=== PATIENT | male | born 1955 | race Caucasian/White ===

== ENCOUNTER 2024-12-09 01:11 | Inpatient (IN) | payer BC ==
[~2024-12-09] VITALS: Ht 185.4 cm; Wt 111.0 kg
[2024-12-09] VITALS (9 sets, daily range): BP systolic 105–131; BP diastolic 56–81; PULSE 64–140; RESP 9–17; TEMP 96.7–98.2; O2SAT 94–98
--- NOTE | 2024-12-09 01:15 | ELECTROCARDIOGRAPH REPORT ---
[facility] Test Date: 2024-12-09 Test Time: 01:12:49 Pat Name: CARMELITA BOSS Department: [facility] Patient ID: [id number] Room: [place] [address] Gender: M [employer] Maintenance Mechanic: : [id number] Requested By: CY MOON Order Number: [id number] Reading MD: Dr. Paul Maldonado Measurements Intervals Rowdy Rate: 111 P: 251 RI: 175 QRS: -26 QRSD: 112 T: 252 QT: 349 QTc: 474 Interpretive Statements Sinus tachycardia with irregular rate Probable anterior infarct, age indeterminate Electronically Signed On 12-12-2024 7:42:[address] Paul Maldonado Please click the below link to view image of tracing.
--- NOTE | 2024-12-09 01:29 | Physician Documentation ---
History of Present Illness ~ Chief Complaint: Irregular Heartbeat Stated Complaint: SEE CHIEF COMPLAINT [facility] Time Seen by MD: 01:15 HPI 69 year old male sent as transfer from [facility] today with a recent diagnosis of CHF, EF of 15-20% by echocardiogram. His initial presenting symptoms were fatigue and orthopnea. Initially was to be admitted to [facility] but left AMA earlier today and returned. Has variously been noted to be in afib/rvr, sinus bradycardia, and finally a type 2 heart block for which he was transferred here for possible need for a pacemaker. He was diuresed at [facility] and reports improved symptoms since that time. Denies chest pain, N/V/D. Medication Reconciliation Allergies: Coded Allergies: ibuprofen (Verified Allergy, Unknown, 12/09/24) lip swelling Review of Systems All Other Systems at this time: Reviewed and Negative Physical Exam Vital Signs: RN Vital Signs have been reviewed: Yes, Temperature: 98.2, Heart Rate: 132, Respiratory Rate: 16, BP: 104/65, Pulse Oximetry: 94, Weight: 111.000 Oxygen Flow Rate: 0 Physical Exam HEENT: PERRL, moist oral mucosa, EOMI Pulmonary: No respiratory distress CTAB Cardiac: irregularly irregular, no murmur, rub or gallop MSK: no deformity; +trace pitting edema BLE Skin: w/d/i, no rash Neuro: alert, nonfocal Psych: normal affect Progress Results/Orders Results/Orders Orders - CY MOON MD Page Hospitalist (12/09/24 01:21) Completed Orders - CY MOON MD Electrocardiogram (12/09/24 01:12) Vital Signs 12/09/24 12/09/24 01:13 01:25 Temp 98.2 Pulse 132 96 Resp 16 17 B/P (MAP) 104/65 116/51 (72) Pulse Ox 94 95 O2 Flow Rate 0 0 EKG/XRAY/CT/US/VASC/MRI EKG : Indication: weakness EKG Rate: 111 EKG Blocks: second degree mobitz I Additional Comment my interpretation: second degree mobitz type 1 (derickebach) at rate of 111/min, no STEMI criteria Medical Decision Making Additional information obtaine: N/A Findings 69 year old male with new diagnosis of pulmonary edema 2/2 CHF and poor ejection fraction, now with intermittent heart block and possible need for pacemaker placement. Stable on arrival from [facility] and will transfer care to hospitalist for tele floor. Differential Dx:Considerations: Include: other Differential Dx:Considerations: Include other Departure Disposition: 01 HOME / SELF CARE / HOMELESS Impression: Primary Impression: CHF (congestive heart failure) Additional Impression: Mobitz type I Wenckebach atrioventricular block Condition: Stable Referrals: NO PRIMARY CARE PROVIDER (PCP) Education Educated: Patient Educated regarding: diagnosis, treatment, prognosis, need for follow up Signature Scribe Signature: . Attestation: . CY MOON MD Dec 09, 2024 01:29
[2024-12-09] MEDS ORDERED: NO HOME MEDS (02:16)
[2024-12-09] MEDS ORDERED: magnesium hydroxide 30ml (MOM) UD suspension PO PRN (02:30)
[2024-12-09] MEDS ORDERED: potassium Cl 40MEQ/1/2NS 520ml 520 ML IV PRN (02:30)
[2024-12-09] MEDS ORDERED: magnesium sulf-water 2g/50mL 50 ML IV PRN (02:30)
[2024-12-09] MEDS ORDERED: ondansetron/PF 4mg/2ml inj IV PRN (02:30)
[2024-12-09] MEDS ORDERED: potassium Cl 20 mEq SR tablet PO PRN ×2 (02:30)
[2024-12-09] MEDS ORDERED: magnesium sulf-water 4G/100mL 100 ML IV PRN (02:30)
[2024-12-09] MEDS ORDERED: magnesium Cl slow-release 64mg tablet PO PRN (02:30)
[2024-12-09] MEDS ORDERED: mag hydrox/Alum hydrox/simeth 30ml oral suspension PO PRN (02:30)
[2024-12-09] MEDS ORDERED: HYDROcodone/acetaminophen 5mg/325mg tablet PO PRN (02:30)
--- NOTE | 2024-12-09 02:32 | HISTORY AND PHYSICAL-Residence ---
History & Physical Providers to CC Resident Creating Document: LUCILA VERNON, RES CC: VANITA BAEZ MD ~ History of Present Illness Reason for Admit\Complaint: CHF,Afib,tachy-belia arrhythmias History of Present Illness A 69-year-old male patient, past history of hypertension presented to the ED as a transfer from [place]. Patient has been having shortness of breath fatigue for the last two weeks associated with bilateral pitting pedal edema and paroxysmal nocturnal dyspnea. Patient presented to the ED in [place] with these symptoms and was noted that his EF was 15-20%. In addition patient was also diagnosed atrial fibrillation with RVR, dilated cardiomyopathy, systolic congestive heart failure and second-degree type one and type 2 heart block Patient lives with his in his house Patient's primary care doctor is Dr. Plaza Patient normally ambulates on his own Patient is an ex electrical maintenance engineer from [employer] Allergies: Coded Allergies: ibuprofen (Verified Allergy, Unknown, 12/09/24) lip swelling Home Medications Home Medications Active Reported No Home Medications (Home Med List) Each Past Medical History Past Medical History Hypertension Past Surgical History Surgical History Comment Hernia repair in 1979 Past Social History Social History Comment Patient lives with in his house Denies any alcohol or tobacco use Denies any drug use ROS All Other Systems: Reviewed and Negative ROS Constitutional: No fever, dizziness, no weakness, no decrease in appetite HEENT: Normal vision. No sore throat, epistaxis, tinnitus Cardiovascular: No chest pain/discomfort, palpitations, syncope. no pedal edema Respiratory: sob noted, no cough, no hemoptysis Gastrointestinal: No abdominal pain, nausea, vomiting. No diarrhea, melena. Genitourinary: No frquency, urgency, incontinence, nocturia. No dysuria, hematuria Musculoskeletal: Normal, no pains Endocrine:fatigue, no polydipsia, no polyuria. No heat or cold intolerance Neurologic: No headache, vertigo. No weakness, numbness or tingling of extrem ities Psychiatric: No hallucinations/delusions, no anhedonia, no suicidal ideation Hematologic: No bruises Exam Vitals: Vital Signs Date Time Temp Pulse Resp B/P (MAP) Pulse Ox O2 Delivery O2 Flow Rate FiO2 12/09/24 02:24 89 17 136/96 (109) 97 0 12/09/24 01:13 98.2 General: General: Awake, oriented to person, place and time HEENT: Conjunctive are pink, sclerae clear, no icterus, pupil is equal in both sides, reactive to light, no ear discharge, no pharyngeal erythema or an edema. Neck: Supple, no JVD, no lymphadenopathy and thyromegaly. Chest: Equal air entry on both lungs, no additional sounds no rhonchi no wheezing at the moment. Cardiovascular: S1-S2 heard, tachycardia, irregular rhythm noted, no gallops, no rubs, no murmurs Abdomen: Everted umbilicus, No visible peristalsis, Bowel sounds present on auscultation, soft, no tenderness, no guarding, no rigidity Extremities: No obvious deformities, no pitting edema bilaterally, capillary refill intact, peripheral pulsations are intact on both sides. Hairless and shiny lower extremities noted(as per patient it has always been this way) Neurologic: Mental status: alert and conscious, oriented to place, person and time, preserved memory, normal speech. Cranial nerves I-XII: Normal. Motor system: Preserved power, coordination, no evidenced involuntary movements, strength 5/5 in four extremities. Sensory system: Preserved temperature, pain and vibration sensation. 2+ deep tendon reflexes in biceps, triceps, quadriceps. Negative Babinski. Cerebellar: No nystagmus, dysdiadochokinesia, normal [id number] testing. Musculoskeletal: No joint swelling, deformities, inflammations, and no scoliosis and back tenderness Skin: Warm and dry. Dry oral mucosa. Advance Care Planning Advanced Care plannin - 30 Minutes (Spent 17 minutes discussing advanced care planning/resuscitative methods with the patient,he decided he wanted to be a full code) Additional Plan Atrial fibrillation with RVR Tachy-belia syndrome Second-degree type 1 heart block Fluctuating heart rate between 68-130 beats per minute, EKG reads sinus tachycardia with a regular rate Plan We will recommend administration metoprolol IV push if her sustained heart rate of more than 130 Ordered echocardiogram Telemetry monitoring initiated Cardiology consultation in the a.m., patient will possibly require a pacemaker Acute congestive heart failure with severely reduced ejection fraction of 15%, decompensated As per records from previous hospital, patient's ejection fraction is 15% Patient has been feeling short of breath for the last two weeks, associated with paroxysmal nocturnal dyspnea, bilateral lower extremity edema Patient was recently initiated on GDMT drugs, but he is not compliant with it Hypertension Patient has a history of hypertension but has not been on any medication prior to two weeks Currently patient's blood pressure is soft, hold antihypertensive medications for now Obesity BMI 32.3 Patient would benefit from weight loss, diet control Code Status: Full code DVT Prophylaxis: SCDs Lines/Tubes: PIV Nutrition: NPO PT:yes Prognosis: Guarded Disposition: We will follow up with echocardiogram, labs have been ordered and consult Cardiology in the morning. Lucila Vernon MD Internal medicine resident,PGY-1 Date of Service: Dec 09, 2024 Billing Provider: VANITA BAEZ MD,LUCILA, RES Dec 09, 2024 02:32
[2024-12-09] MEDS ORDERED: morphine 4 MG/ML inj SYRINge IV PRN (02:35)
[2024-12-09] MEDS: PERFLUTREN PROTEIN-A MICROSPHR (Optison) 0.22 MG/ML 3ML VIAL IV ONE (02:38)
[2024-12-09 07:35] LABS: APTT 27 SECONDS (22-32); INR 1.3 INR
[2024-12-09] MEDS: docusate sod 100mg capsule PO SCH (08:00)
[2024-12-09] MEDS: K and/or MAG REPLACEMENT MC SCH (08:00)
[2024-12-09 08:23] LABS: CREATININE 0.98 MG/DL (0.60-1.10); PHOSPHORUS 5.1 MG/DL (2.3-4.5); PRO BRAIN NATRIURETIC PEPTIDE 1724 PG/ML (0-125); TOTAL CARBON DIOXIDE 28.5 MMOL/L (24-32); eCRCL 78 ML/MIN; eGFR 75 ML/MIN
[2024-12-09 08:55] LABS: MEAN PLATELET VOLUME 8.3 FL (7.4-10.4); RED CELL DISTRIBUTION WIDTH 14.5 % (11.5-14.5)
[2024-12-09] MEDS: heparin, porcine 5000 units/ml vial SQ SCH (17:44)
--- NOTE | 2024-12-09 19:35 | CONSULTATION REPORT - RESIDENT ---
Consult Providers to CC Resident Creating Document: JUAN MARTINEZ RES History of Present Illness History of Present Illness A 69-year-old male patient, past history of hypertension, hyperlipidemia presented to the ED as a transfer from [place]. Patient has been having shortness of breath fatigue for the last two weeks with exertion associated with bilateral pitting edema, chest tightness, PND, orthopnea patient denies any palpitation, sweating, fever , nausea and vomiting Allergies: Coded Allergies: ibuprofen (Verified Allergy, Unknown, 12/09/24) lip swelling Home Medications Home Medications Active Reported No Home Medications (Home Med List) Each Past Medical History Past Medical History Hypertension Hyperlipidemia Past Surgical History Surgical History Comment Hernia repair in 1979 Family History Family History: Patient reports no known family medical history. Past Social History Social History Comment Patient lives with in his house Denies any alcohol or tobacco use Denies any drug use ROS ROS Constitutional: No fever, dizziness, no weakness, no decrease in appetite HEENT: Normal vision. No sore throat, epistaxis, tinnitus Cardiovascular: No chest pain/discomfort, palpitations, syncope. no pedal edema Respiratory: sob noted, orthopnea, PND no cough, no hemoptysis Gastrointestinal: No abdominal pain, nausea, vomiting. No diarrhea, melena. Genitourinary: No frquency, urgency, incontinence, nocturia. No dysuria, hematuria Musculoskeletal: Normal, no pains Endocrine:fatigue, no polydipsia, no polyuria. No heat or cold intolerance Neurologic: No headache, vertigo. No weakness, numbness or tingling of extremities Psychiatric: No hallucinations/delusions, no anhedonia, no suicidal ideation Hematologic: No bruise Exam Vitals: Vital Signs Date Time Temp Pulse Resp B/P (MAP) Pulse Ox O2 Delivery O2 Flow Rate FiO2 12/09/24 15:00 97.6 140 17 125/69 (87) 95 Room Air 12/09/24 02:24 0 General: HEENT: Conjunctive are pink, sclerae clear, no icterus, pupil is equal in both sides, reactive to light, no ear discharge, no pharyngeal erythema or an edema. Neck: Supple, no JVD, no lymphadenopathy and thyromegaly. Chest: Equal air entry on both lungs, no additional sounds no rhonchi no wheezing at the moment. Cardiovascular: Tachycardic, S1 and S2 heard, no gallops, no rubs, no murmurs Abdomen: Everted umbilicus, No visible peristalsis, Bowel sounds present on auscultation, soft, no tenderness, no guarding, no rigidity Extremities: No obvious deformities, no pitting edema bilaterally, capillary refill intact, peripheral pulsations are intact on both sides. Hairless and shiny lower extremities noted(as per patient it has always been this way) Neurologic: Mental status: alert and conscious, oriented to place, person and time, preserved memory, normal speech. Cranial nerves I-XII: Normal. Motor system: Preserved power, coordination, no evidenced involuntary movements, strength 5/5 in four extremities. Sensory system: Preserved temperature, pain and vibration sensation. 2+ deep tendon reflexes in biceps, triceps, quadriceps. Negative Babinski. Cerebellar: No nystagmus, dysdiadochokinesia, normal [id number] testing. Musculoskeletal: No joint swelling, deformities, inflammations, and no scoliosis and back tenderness Skin: Warm and dry. Dry oral mucosa. Diagnostic Data Last Recorded Lab Results: 12/09/24 0634 12/09/24 0634 Diagnostic Data: Laboratory Tests Test 12/09/24 06:34 Prothrombin Time 12.7 SECONDS (9.0-12.0) H INR International Normalized Ratio 1.3 INR Activated Partial Thromboplast Time 27 SECONDS (22-32) Coagulation Comments Additional Plan Acute congestive heart failure with reduced ejection fraction of 15%, decompensated Possible underlying CAD/ischemic cardiomyopathy As per records from previous hospital, patient's ejection fraction is 15% Plan Continue losartan 25 mg p.o. daily, Jardiance 10 mg p.o. daily, spironolactone 25 mg p.o. daily Started on carvedilol 6.25 mg p.o. b.i.d. Follow up with pro BNP, lipid panel Follow up with chest x-ray-we will decide about diuresing the patient after chest x-ray Discussed about the cardiac catheterization plan with patient , patient will be on NPO after breakfast and cardiac catheterization tomorrow Paroxysmal atrial fibrillation Rate controlled Telemetry shows: Sinus tachycardia with heart rate of 138 Plan: Started on amiodarone 200 mg p.o. b.i.d. Hyperlipidemia Patient has a history of hyperlipidemia he mentioned about following diet with red rice and he is currently not taking any medications Follow up with lipid panel Hypertension Continue management per primary care team. Obesity BMI 32.3 Continue management per primary care team. Code Status: Full DVT prophylaxis: Heparin subQ Nutrition: Heart healthy, NPO after break fast from tomorrow Disposition: We discussed with the patient about cardiac catheterization, patient will be put on NPO after breakfast and cardiac catheterization tomorrow Juan Martinez PGY1-Internal Medicine Resident Patient seen and examined by Dr. Katie ORTA.? Probably nonischemic, rate related cardiomyopathy. We will continue with the workup. Sepsis Screening Reassessment Date: Dec 10, 2024 Reassessment Time: 15:00 Vitals Signs Review Pulse 72 per minute, blood pressure 112/70. Respiration 12 per minute Cardiology Exam: normal peripheral pulses, regular rate, rhythm Peripheral Pulses: 2+ carotid (R), 2+ carotid (L), 2+ radial (R), 2+ radial (L), 2+ femoral (R), 2+ femoral (L), 2+ dorsalis pedis (R), 2+ dorsalis pedis (L), 2+ posterior tib (R), 2+ posterior tib (L), 2+ other Extremities: normal capillary refill Extremities Trace edema. Skin Color: Normal Date of Service: Dec 09, 2024 Billing Provider: CURTIS VU MD, SATISH, SANDRA Dec 09, 2024 19:35 CURTIS VU MD Dec 10, 2024 19:53
--- NOTE | 2024-12-09 20:04 | RADIOLOGY REPORT ---
CLINICAL HISTORY: Congestive heart failure TECHNIQUE: Chest 2 views of the chest were obtained. COMPARISON: None FINDINGS: The heart size and pulmonary vasculature are normal. There is small right pleural effusion. There is no focal lung consolidation. IMPRESSION: Small right pleural effusion.
[2024-12-09] MEDS: carvedilol 6.25mg tablet PO SCH (20:56)
[2024-12-10] VITALS (16 sets, daily range): BP systolic 51–133; BP diastolic 58–83; PULSE 52–94; RESP 11–24; TEMP 96.7–98.2; O2SAT 95–100
[2024-12-10 06:43] LABS: MEAN PLATELET VOLUME 8.1 FL (7.4-10.4); RED CELL DISTRIBUTION WIDTH 14.7 % (11.5-14.5)
[2024-12-10 06:59] LABS: CHOL/HDL RATIO 4.2 (0.00-4.99); CREATININE 0.77 MG/DL (0.60-1.10); LDL CHOLESTEROL 84 MG/DL (50-100); PRO BRAIN NATRIURETIC PEPTIDE 901 PG/ML (0-125); TOTAL CARBON DIOXIDE 29.1 MMOL/L (24-32); eCRCL 99 ML/MIN; eGFR > 90 ML/MIN
[2024-12-10] MEDS: EMPAGLIFLOZIN 10 MG TABLET PO SCH (09:24)
[2024-12-10] MEDS ORDERED: heparin 1,000unit/ml 10ml vial 10 ML ONE (15:23)
[2024-12-10] MEDS ORDERED: iohexol 350 MG/ML 50ML vial IV ONE (15:23)
[2024-12-10] MEDS ORDERED: fentaNYL/PF 50MCG/1 ML 2ML syringe ONE (15:23)
[2024-12-10] MEDS ORDERED: midazolam 1 mg/ML 2ml injection ONE (15:23)
[2024-12-10] MEDS ORDERED: verapamil 2.5 mg/ml inj IV ONE ×2 (15:23→16:12)
[2024-12-10] MEDS ORDERED: nitroGLYCERIN 500mcg/5mL D5W 5 ML IV ONE (15:24)
[2024-12-10] MEDS ORDERED: LIDOcaine 1% (10mg/ml) 2ml vial ONE (15:24)
[2024-12-10] MEDS ORDERED: LIDOcaine 1% 30ml preserv. free vial ONE (15:45)
--- NOTE | 2024-12-10 15:58 | PROGRESS NOTE- Residence ---
Progress Note - Resident Providers to CC Resident Creating Document: ANDRWE BOWER, RES CC: CURTIS VU MD ~ Antibiotic Timeout Antibiotic Ordered?: No Subjective Patient was seen and examined at bedside. Patient's who is at bedside states that he has been slowing down for a few months now. She states that his eyes and face was swollen, there was grayish discoloration of the skin on exertion, has been taking multiple breaks in between yardwork. On further conversations with the patient, patient states that he feels exhausted, endorses orthopnea, states that he had gradual worsening of shortness of breaths that has present at rest that has progressed from having shortness of breaths after taking stairs of at least 20 steps. Patient's also added that he was snoring and choking in between but never had a sleep study as outpatient. Patient also endorses tightness of chest that has intermittent, nonspecific to rest or exertion. Patient has been having gradual worsening of shortness of breaths and chest pain with the worst episode on the day prior to admission. Objective Vital Signs Date Time Temp Pulse Resp B/P (MAP) Pulse Ox O2 Delivery O2 Flow Rate FiO2 12/10/24 11:00 97.4 94 24 114/82 (93) 98 Room Air 12/09/24 02:24 0 Result Diagram: 12/10/24 0552 12/10/24 0552 General: Alert, awake, oriented, not in acute distress HEENT: PERRLA, no icterus, pallor, lymphadenopathy, carotid bruit Respiratory system: Bilateral vesicular breath sounds heard, bilateral basal Creps present CVS: S1-S2 heard, no murmurs/rubs/gallop GI: Soft, nontender, no organomegaly, no guarding/rigidity, bowel sounds present Neuro: No focal neurological deficits present Mental status exam: memory, speech -intact - Cranial nerve test: Cranial nerves 2-12 intact - Motor system: Nutrition, Tone 3+, Power 5/5, no involuntary movements - Sensory system: Intact - Reflex testing: Biceps, triceps and knee reflexes 2+ - Cerebellar: Normal Extremities: 1+ pitting edema present on bilateral feet Skin: Warm and dry Coagulation Studies Laboratory Tests Test 12/09/24 06:34 Prothrombin Time 12.7 SECONDS (9.0-12.0) H INR International Normalized Ratio 1.3 INR Activated Partial Thromboplast Time 27 SECONDS (22-32) Coagulation Comments Assessment Assessment A 69-year-old male with a past medical history of HLD, HTN presented to the ED as a transfer in view of low ejection fraction on echo of 10-15%. Cardiology is consulted in view of new onset HFrEF with the ejection fraction 10-15% Plan Plan New onset HFrEF, EF: 10-15% AHA: Stage C, NYHA: Class III 2/2 possible tachyarrhythmias Moderate CAD Chest x-ray: Small right pleural effusion GDM T: Losartan 25 mg p.o. daily, Jardiance 10 mg p.o. daily, spironolactone 25 mg p.o. daily, carvedilol 6.25 mg p.o. b.i.d. Aspirin 81 mg once daily Cardiac catheterization revealed moderate disease LAD and diagonal ProBNP, trending downwards. Continue to monitor proBNP Strict Is&Os LifeVest Outpatient follow up with Dr. Vu Paroxysmal atrial fibrillation, RVR [id number]: 2 Increased amiodarone to 400 mg p.o. b.i.d., continue this for one week followed by switching to amiodarone 200 mg p.o. b.i.d. for two weeks followed by amiodarone 200 mg once daily Eliquis 5 mg p.o. b.i.d. Hyperlipidemia LDL: 84 Atorvastatin 40 mg once daily Hypertension Continue management per primary care team. Obesity Possible sleep apnea Outpatient sleep study advised Code Status: Full DVT prophylaxis: Heparin subQ Nutrition: Heart healthy Disposition: Cardiology team we will continue to follow up with the patient. Andrew Bower MD Internal Medicine, PGY 2 Patient seen and examined by Dr. Katie ORTA. Patient had coronary angiography. Has nonischemic cardiomyopathy. Probably rate related to atrial fibrillation. Increase amiodarone to 400 mg p.o. b.i.d.. Optimize GDM T therapy. Recheck follow up echo in two months. Date of Service: Dec 10, 2024 Billing Provider: CURTIS VU MD, SIVA, RES Dec 10, 2024 15:58 CURTIS VU MD Dec 10, 2024 19:55
[2024-12-10 16:56] LABS: ISTAT HGB ART 15.3 g/dl (14.0-17.9); ISTAT Hct ART 45 %PCV (42-52); ISTAT O2 SATURATION ARTERIAL 96 % (95-98); ISTAT SOURCE ART
--- NOTE | 2024-12-10 18:35 | PROGRESS NOTE ---
Daily Progress Note Providers to CC No new complaint today, awaiting to go to cardiac catheterization ~ Central Line/PICC still needed: No Farmer-Non Protocol Farmer Indications Met/Not Met: F/C Indications Not Met Antibiotic Timeout Antibiotic Ordered?: No MRSA Education MRSA Education Provided to pt: No Subjective As above Objective Vital Signs Date Time Temp Pulse Resp B/P (MAP) Pulse Ox O2 Delivery O2 Flow Rate FiO2 12/10/24 18:00 71 15 107/72 (84) 100 12/10/24 15:00 98.0 12/10/24 11:00 Room Air 12/09/24 02:24 0 Vital signs, stable ,afebrile. Pulse Oximetry reflects adequate oxygenation. General: well developed, well nourished. Awake , alert, and oriented x4, resting comfortably in the bed, in no acute distress . Skin: Warm, dry, no pallor, no rash or petechiae. HEENT: Atraumatic, normocephalic, EOMI, anicteric sclera B; pink conjunctiva; PERRLA, normal oropharynx, moist oral and nasal mucosa. Tympanic membrane , nose , throat clear. Neck: Trachea midline. Supple, full range of motion, no JVD, bruit , hepatojugular reflex , lymphadenopathy or masses, or other lesions Cardiac: Regular rhythm, regular rate no murmurs, rubs, or gallops. Normal S1 and S2, no S3 noticed. PMI is normal. Respiratory: Equal breath sounds bilaterally, no tachypnea; lungs clear to auscultation bilaterally, no wheezing ,rub or rales, or crackles. Chest wall is symmetric and without deformity. No signs of trauma. Chest wall is nontender. No signs of respiratory distress. Resonance is normal upon percussion bilaterally. Gastrointestinal: Abdomen symmetric, non-distended, soft, non-tender, normal bowel sounds x4 quadrant, normoactive, no hepatosplenomegaly , no masses , no bruit, no flank pain bilaterally. No voluntary guarding, rebound, or rigidity. No tenderness to percussion. No pulsatile masses. Equal femoral pulses. No Patel's sign or McBurney point tenderness. Back; no CVA tenderness bilaterally, no deformities. Neck and back are without deformity as well. No tenderness noted on palpation of the spinous processes. Spinous processes are midline. Cervical, thoracic, and lumbar paraspinal muscles are not tender and are without spasm. : normal external genitalia, without lesions, swelling, masses or tenderness. Musculoskeletal: Extremities, normal range of motion, non-tender, muscle strength 5/5 x 4. Negative Homans signs bilaterally on lower extremity. Distal pulses full symmetrical, no clubbing, cyanosis , edema. Neurological: Speech is clear, alert, and oriented x 4. No motor or sensory deficit, deep tendon reflexes normal, cerebellar intact. Cranial nerves II-XII intact. Psych: Alert and or appropriate, normal affect. Vascular: Good distal pulses, which are equal x4; capillary refill less than 2 seconds. Lymphatic, no lymphadenopathy. Result Diagram: 12/10/24 0552 12/10/2452 Coagulation Studies Laboratory Tests Test 12/09/24 06:34 Prothrombin Time 12.7 SECONDS (9.0-12.0) H INR International Normalized Ratio 1.3 INR Activated Partial Thromboplast Time 27 SECONDS (22-32) Coagulation Comments Problem\Assessment\Plan Plan Atrial fibrillation with RVR Tachy-belia syndrome Second-degree type 1 heart block Fluctuating heart rate between 68-130 beats per minute, EKG reads sinus tachycardia with a regular rate Plan We will recommend administration metoprolol IV push if her sustained heart rate of more than 130 Ordered echocardiogram Telemetry monitoring initiated Cardiology consultation done, awaiting to go to cardiac catheterization today Acute congestive heart failure with severely reduced ejection fraction of 15%, decompensated As per records from previous hospital, patient's ejection fraction is 15% Patient has been feeling short of breath for the last two weeks, associated with paroxysmal nocturnal dyspnea, bilateral lower extremity edema Patient was recently initiated on GDMT drugs, but he is not compliant with it Hypertension Patient has a history of hypertension but has not been on any medication prior to two weeks Currently patient's blood pressure is soft, hold antihypertensive medications for now Obesity BMI 32.3 Patient would benefit from weight loss, diet control Code Status: Full code DVT Prophylaxis: SCDs Lines/Tubes: PIV Nutrition: NPO PT:yes Prognosis: Guarded Sepsis Screening Reassessment Date: Dec 10, 2024 Date of Service: Dec 10, 2024 Billing Provider: PRESTON HERBERT MD Common Visit Codes: [id number] INP/OBS CARE(HIGH) PRESTON HERBERT MD Dec 10, 2024 18:35
[2024-12-11 02:00] VITALS: BP 118/46; PULSE 83; RESP 15; TEMP 98.2; O2SAT 99
[2024-12-11 05:38] LABS: MEAN PLATELET VOLUME 7.6 FL (7.4-10.4); RED CELL DISTRIBUTION WIDTH 14.8 % (11.5-14.5)
[2024-12-11 05:58] LABS: CREATININE 0.78 MG/DL (0.60-1.10); PRO BRAIN NATRIURETIC PEPTIDE 950 PG/ML (0-125); TOTAL CARBON DIOXIDE 28.4 MMOL/L (24-32); eCRCL 98 ML/MIN; eGFR > 90 ML/MIN
[2024-12-11 06:00] VITALS: BP 106/75; PULSE 86; RESP 21; TEMP 97.8; O2SAT 95
[2024-12-11 06:33] LABS: ISTAT HGB MIX 14.3 g/dl (14.0-17.9); ISTAT Hct MIX 42 %PCV (42-52); ISTAT O2 SATURATION MIX VENOUS 74 % (60-80); ISTAT SOURCE BLNK
[2024-12-11 08:00] VITALS: RESP 21; O2SAT 95
--- NOTE | 2024-12-11 08:18 | ELECTROCARDIOGRAPH REPORT ---
[facility] Test Date: 2024-12-11 Test Time: 06:53:49 Pat Name: CARMELITA BOSS Department: [facility] 3S Patient ID: [facility]-[id number] Room: [place] [address] A Gender: M Brand Strategist: EMILIE : 1955 Requested By: GLORIA GUIDRY Order Number: [id number] Reading MD: Dr. MALIKA Mederos Measurements Intervals Gravity Rate: 64 P: 65 MD: 210 QRS: 118 QRSD: 120 T: 104 QT: 478 QTc: 494 Interpretive Statements Sinus rhythm Consider left atrial enlargement Nonspecific intraventricular conduction delay Probable anterior infarct, age indeterminate Electronically Signed On 12-11-2024 16:51:[address] MALIKA Mederos Please click the below link to view image of tracing.
[2024-12-11] MEDS: aspirin 81mg, enteric-coated 1 TAB TABLET.DR PO SCH (08:56)
[2024-12-11 09:00] VITALS: BP 86/68
[2024-12-11 09:05] VITALS: BP 130/80
--- NOTE | 2024-12-11 10:39 | PROGRESS NOTE- Residence ---
Progress Note - Resident Providers to CC Resident Creating Document: GLORIA BOWER, SANDRA CC: CURTIS VU MD ~ Antibiotic Timeout Antibiotic Ordered?: No Subjective Patient was seen and examined at bedside. Patient does not have new complaints, says that his shortness of breath is much improved, did not have chest pain episodes during the hospital stay. No acute overnight events. Objective Vital Signs Date Time Temp Pulse Resp B/P (MAP) Pulse Ox O2 Delivery O2 Flow Rate FiO2 12/11/24 09:09 75 12/11/24 02:00 98.2 15 118/46 (70) 99 Room Air 12/09/24 02:24 0 Result Diagram: 12/11/2451812/11/24518 General: Alert, awake, oriented, not in acute distress HEENT: PERRLA, no icterus, pallor, lymphadenopathy, carotid bruit Respiratory system: Bilateral vesicular breath sounds heard, bilateral basal Creps present CVS: S1-S2 heard, no murmurs/rubs/gallop GI: Soft, nontender, no organomegaly, no guarding/rigidity, bowel sounds present Neuro: No focal neurological deficits present Mental status exam: memory, speech -intact - Cranial nerve test: Cranial nerves 2-12 intact - Motor system: Nutrition, Tone 3+, Power 5/5, no involuntary movements - Sensory system: Intact - Reflex testing: Biceps, triceps and knee reflexes 2+ - Cerebellar: Normal Extremities: 1+ pitting edema present on bilateral feet Skin: Warm and dry Coagulation Studies Laboratory Tests Test 12/09/24 06:34 Prothrombin Time 12.7 SECONDS (9.0-12.0) H INR International Normalized Ratio 1.3 INR Activated Partial Thromboplast Time 27 SECONDS (22-32) Coagulation Comments Assessment Assessment A 69-year-old male with a past medical history of HLD, HTN presented to the ED as a transfer in view of low ejection fraction on echo of 10-15%. Cardiology is consulted in view of new onset HFrEF with the ejection fraction 10-15% Plan Plan New onset HFrEF, EF: 10-15% AHA: Stage C, NYHA: Class III 2/2 possible tachyarrhythmias Moderate CAD Chest x-ray: Small right pleural effusion GDM T: Losartan 25 mg p.o. daily, Jardiance 10 mg p.o. daily, spironolactone 25 mg p.o. daily, carvedilol 6.25 mg p.o. b.i.d. Aspirin 81 mg once daily ProBNP, trending downwards. Continue to monitor proBNP Strict Is&Os LifeVest Outpatient follow up with Dr. Vu, repeat echo in two months Paroxysmal atrial fibrillation, RVR [id number]: 2 Continue amiodarone to 400 mg p.o. b.i.d., (seven days) followed by switching to amiodarone 200 mg p.o. b.i.d. for two weeks followed by amiodarone 200 mg once daily Eliquis 5 mg p.o. b.i.d. Hyperlipidemia LDL: 84 Atorvastatin 40 mg once daily Hypertension Continue management per primary care team. Obesity Possible sleep apnea Outpatient sleep study advised Code Status: Full DVT prophylaxis: Heparin subQ Nutrition: Heart healthy Disposition: Cardiology team we will continue to follow up with the patient. Gloria Bower MD Internal Medicine, PGY 2 Patient seen and examined by Dr. Katie ORTA. Patient in normal sinus rhythm. GDM T therapy optimized. The importance of amiodarone loading and maintenance dose instructions discussed in detail with patient Date of Service: Dec 11, 2024 Billing Provider: CURTIS VU MD, SIVA, RES Dec 11, 2024 10:39 CURTIS VU MD Dec 11, 2024 17:14
[2024-12-11 11:00] VITALS: BP 110/69; PULSE 70; RESP 22; TEMP 97.8; O2SAT 94
[2024-12-11] MEDS ORDERED: ASPI81TA52 PO (11:33)
[2024-12-11] MEDS ORDERED: APIX5TAB3 PO (11:33)
[2024-12-11] MEDS ORDERED: CARV6.253 PO (11:33)
[2024-12-11] MEDS ORDERED: LOSA25TA41 PO (11:33)
[2024-12-11] MEDS ORDERED: EMPA10TA PO (11:33)
[2024-12-11] MEDS ORDERED: SPIR25TA PO (11:33)
[2024-12-11] MEDS ORDERED: AMIO200T27 PO (11:36)
[2024-12-11] MEDS ORDERED: ATOR20TA66 PO (11:42)
--- NOTE | 2024-12-11 17:56 | DISCHARGE SUMMARY ---
Discharge Summary Providers to Feels better today cleared for discharge by paper sales manager ~ Discharge Summary Assessment Acute systolic CHF, ejection fraction 15% in exacerbation Atrial fibrillation with RVR Tachy-radha syndrome Hypertension fair control pre morbid obesity Second-degree type 1 heart block Admission Diagnosis: A FIB, DCM, TACHY-RADHA ARRHYTHMIA Admission Diagnosis Comment: Acute systolic CHF, ejection fraction 15% in exacerbation Atrial fibrillation with RVR Tachy-radha syndrome Hypertension fair control pre morbid obesity Second-degree type 1 heart block Hospital Course DATE OF ADMISSION: December 09, 2024 DATE OF DISCHARGE: December 11, 2024 Discharge Diagnosis\Comment: Acute systolic CHF, ejection fraction 15% in exacerbation Atrial fibrillation with RVR Tachy-radha syndrome Hypertension fair control pre morbid obesity Second-degree type 1 heart block Operations\Procedures: Cardiac catheterization Consultants: Certified Home Health Aide Complications: Non Condition on DC: Stable Discharge Summary: A 69-year-old male patient, past history of hypertension presented to the ED as a transfer from [place]. Patient has been having shortness of breath fatigue for the last two weeks associated with bilateral pitting pedal edema and paroxysmal nocturnal dyspnea. Patient presented to the ED in [place] with these symptoms and was noted that his EF was 15-20%. In addition patient was also diagnosed atrial fibrillation with RVR, dilated cardiomyopathy, systolic congestive heart failure and second-degree type one and type 2 heart block, after admission patient was extensively evaluated treated including Cardiology evaluation and cardiac catheterization done, medication adjusted, today cleared by paper sales manager to be discharged, he will be discharged in stable condition, medication reconciled, follow-up PCP Cardiology in three days, today on physical exam Vital signs, stable ,afebrile. Pulse Oximetry reflects adequate oxygenation. General: well developed, well nourished. Awake , alert, and oriented x4, resting comfortably in the bed, in no acute distress . Skin: Warm, dry, no pallor, no rash or petechiae. HEENT: Atraumatic, normocephalic, EOMI, anicteric sclera B; pink conjunctiva; PERRLA, normal oropharynx, moist oral and nasal mucosa. Tympanic membrane , nose , throat clear. Neck: Trachea midline. Supple, full range of motion, no JVD, bruit , hepatojugular reflex , lymphadenopathy or masses, or other lesions Cardiac: Regular rhythm, regular rate no murmurs, rubs, or gallops. Normal S1 and S2, no S3 noticed. PMI is normal. Respiratory: Equal breath sounds bilaterally, no tachypnea; lungs clear to auscultation bilaterally, no wheezing ,rub or rales, or crackles. Chest wall is symmetric and without deformity. No signs of trauma. Chest wall is nontender. No signs of respiratory distress. Resonance is normal upon percussion bilaterally. Gastrointestinal: Abdomen symmetric, non-distended, soft, non-tender, normal bowel sounds x4 quadrant, normoactive, no hepatosplenomegaly , no masses , no bruit, no flank pain bilaterally. No voluntary guarding, rebound, or rigidity. No tenderness to percussion. No pulsatile masses. Equal femoral pulses. No Patel's sign or McBurney point tenderness. Back; no CVA tenderness bilaterally, no deformities. Neck and back are without deformity as well. No tenderness noted on palpation of the spinous processes. Spinous processes are midline. Cervical, thoracic, and lumbar paraspinal muscles are not tender and are without spasm. : normal external genitalia, without lesions, swelling, masses or tenderness. Musculoskeletal: Extremities, normal range of motion, non-tender, muscle s trength 5/5 x 4. Negative Homans signs bilaterally on lower extremity. Distal pulses full symmetrical, no clubbing, cyanosis , edema. Neurological: Speech is clear, alert, and oriented x 4. No motor or sensory deficit, deep tendon reflexes normal, cerebellar intact. Cranial nerves II-XII intact. Psych: Alert and or appropriate, normal affect. Vascular: Good distal pulses, which are equal x4; capillary refill less than 2 seconds. Lymphatic, no lymphadenopathy. *Problems/Diagnosis: (1) CHF (congestive heart failure) Status: Acute (2) Heart block Status: Acute Total Time Spent on D/C: > 30 Minutes Date of Service: Dec 11, 2024 Billing Provider: PRESTON HERBERT MD Common Visit Codes: 06763-HIL/OBS DISCH DAY >30min PRESTON HERBERT MD Dec 11, 2024 17:56
--- NOTE | 2024-12-12 04:54 | CARDIOLOGY REPORT ---
DATE OF SERVICE: 12/10/2024 DICTATING PHYSICIAN: MALIKA Mederos MD CARDIAC CATHETERIZATION DATE OF PROCEDURE: 12/10/2024 GENDER: Male. AGE: 69 years. HEIGHT: 185 cm. WEIGHT: 111 kg. BODY SURFACE AREA: 2.34 m2. PRIMARY PHYSICIAN: CHIKI Jeffery coronary INDICATION: The patient is a 69-year-old male who was evaluated at [facility] on 12/09/2024, found to have a diagnosed CHF with ejection fraction of 15% to 20% on echocardiogram and his congestive heart failure. He went AMA and then came back with worsening symptoms and transferred here because of his CHF, arrhythmias and his proBNP was 1724. In view of his dilated cardiomyopathy, after addressing risks, benefits, alternative options, the patient decided to proceed with coronary angiography. Risks, benefits, and alternative options were discussed and informed consent obtained. PROCEDURE TECHNIQUE: The patient underwent left heart catheterization with right radial approach, 6-[place] right radial sheath. Postprocedure access site hemostasis secured with right radial band. Next, the patient underwent right heart catheterization with right antecubital approach, 6-[place] sheath. Postprocedure access site hemostasis was obtained with manual compression. The patient tolerated the procedure well. COMPLICATIONS: None. FINDINGS: HEMODYNAMICS: Aortic systolic 95 mmHg, diastolic 61 mmHg, mean 77 mmHg. LVEDP of 20 mmHg. There is no significant gradient across the aortic valve. Right atrial mean 3 mmHg. RV 28/9 mmHg. PA systolic 27 mmHg. Cardiac output by thermodilution method 5.1 L per minute. Cardiac index of 2.18 L/minute/m2. Aortic oxygen saturation 96%. Pulmonary artery oxygen saturation of 74%. LEFT VENTRICULOGRAM: There is severe LV global hypokinesia. LV ejection fraction is about 20% to 25%. CORONARY CINEANGIOGRAPHY: Left main coronary artery is a large caliber vessel arising from the left aortic sinus with mild luminal irregularity, engaged with a JL4 catheter from the right radial approach. LAD is a medium caliber vessel arising at the bifurcation of the left main and courses through the anterior interventricular groove and ends up by wrapping around the apex. LAD in the mid portion shows 60% to 70% narrowing. Proximal and distal LAD show 30% narrowing. Diagonal 1 and 2 are 2 mm with mild luminal irregularities. Diagonal 3 is 2 mm with ostial 80% narrowing. Circumflex artery is a medium caliber vessel arising at the bifurcation of left main coronary artery, courses through the left AV with mild luminal irregularities. OM1 is a 2.25 mm caliber, which divides into two divisions with mild luminal irregularities. OM2 is 2.25 mm caliber with mild luminal irregularities. OM3 and OM4 are small vessels. Right coronary artery is a medium caliber vessel arising from the right aortic sinus, courses through the right AV groove and enters the posterior crux by dividing into PDA and posterolateral branches. Mid and distal RCA has areas of 30% narrowing. IMPRESSION: A 69-year-old male with dilated cardiomyopathy with left ventricular ejection fraction of 20% to 25%. Left ventricular end-diastolic pressure of 20 mmHg with no significant gradient across the aortic valve. Pulmonary artery systolic pressure of 27 mmHg. Left main normal. Proximal left anterior descending artery 30% and mid left anterior descending artery 60% to 70% narrowing. Diagonal 3 with ostial 70% to 80% narrowing. Circumflex marginal with minimal disease. Right coronary artery mid and distal 30% narrowing. RECOMMENDATIONS: The patient's cardiomyopathy is out of proportion to his coronary artery disease. In view of his recurrent episodes of atrial fibrillation with RVR, most likely explanation for his dilated cardiomyopathy. The goal is to keep him in sinus rhythm with a combination of amiodarone and carvedilol and continue Eliquis and also the patient will have a myocardial perfusion scan in the future to assess the hemodynamic significance of his LAD diagonal lesions. These findings were discussed in detail with the patient. Recommended diet, weight loss, and exercise program, keeping LDL less than 55 mg percent, weight loss and evaluation for sleep apnea. MALIKA Mederos MD TID: [id number] RECEIPT: [id number] /SANYA CC: PMD PRIMARY PHYSICIAN: CHIKI Jeffery MTDD
== END 2024-12-11 12:29 | disposition home health service (06) | DRG 286 ==
LOC: ER 01:12 → ED HOLD 02:31 → PCU 3S 04:12
PROVIDERS: ADMIT Internal Medicine; ATTEND Family Medicine
PROC: 4A023N7 Measurement of Cardiac Sampling and Pressure, Left Heart, Percutaneous Approach (ICD-10-PCS; principal; 2024-12-10)
PROC: B2111ZZ Fluoroscopy of Multiple Coronary Arteries using Low Osmolar Contrast (ICD-10-PCS; 2024-12-10)
PROC: B2151ZZ Fluoroscopy of Left Heart using Low Osmolar Contrast (ICD-10-PCS; 2024-12-10)
DX: I11.0 Hypertensive heart disease with heart failure (principal); I50.23 Acute on chronic systolic (congestive) heart failure; I44.1 Atrioventricular block, second degree; I25.10 Atherosclerotic heart disease of native coronary artery without angina pectoris; I42.0 Dilated cardiomyopathy; I49.5 Sick sinus syndrome; E66.01 Morbid (severe) obesity due to excess calories; I48.0 Paroxysmal atrial fibrillation; Z68.32 Body mass index [BMI] 32.0-32.9, adult
CPT/HCPCS: 36415; 71046; 76937; 80053; 80061; 82803; 83036; 83735; 83880; 84100; 84439; 84443; 84484; 85014; 85025; 85610; 85730; 87081; 93005; 93460; 97161; 97530; 99152; 99153; 99285; A6258; C1725; C1894; G0378; J1644; J2003; J2250; J3010; J3490; J7030; Q9967